=== PATIENT | female | born 1950 | race Caucasian/White ===

== ENCOUNTER 2017-02-02 12:58 | Emergency (ER) | payer OTHER, MEDICARE ==
[~2017-02-02] VITALS: Ht 172.7 cm; Wt 95.2 kg
--- NOTE | 2017-02-02 13:07 | NUR ---
PT IS IN ROOM #2A. DR GARCIA EVALUATED THE PT.
[2017-02-02] MEDS ORDERED: IBUPROFEN 600 MG TABLET PO ONE (13:45)
--- NOTE | 2017-02-02 13:46 | NUR ---
Police officers w/ pt at this time and family in the room.
[2017-02-02] MEDS ORDERED: IBUPROFEN 600 MG TABLET ONE (13:56)
--- NOTE | 2017-02-02 14:21 | NUR ---
MSE COMPLETED, PT D/C'D HOME, PT AMBULATED W/O DIFF WITH FAMILY, TOOK ALL BELONGINGS.
[2017-02-02 14:22] VITALS: BP 150/78
== END 2017-02-02 14:23 | disposition home or self-care (01) ==
LOC: ER 13:01
DX: R51 Headache (principal); E03.9 Hypothyroidism, unspecified; Z88.8 Allergy status to other drugs, medicaments and biological substances; V49.49XA Driver injured in collision with other motor vehicles in traffic accident, initial encounter; Y93.89 Activity, other specified; Y99.8 Other external cause status; Y92.89 Other specified places as the place of occurrence of the external cause
CPT/HCPCS: 99283; A4663